=== PATIENT | female | born 1950 | race Caucasian/White ===

== ENCOUNTER → 2016-11-23 | Outpatient (CLI) | payer MEDICARE ==
[~2016-11-23] MED LIST: ATIVAN-DPS0.5 MG PO; COLACE-DPS100 MG PO; COMPAZINE DPS5 MG PO; DULERA 100/58.8 GM IH; DUONEB DPS3 ML IH; EFFEXOR XR75 MG PO; ELIQUIS2.5 MG PO; LIDODERM PATC1 PATCH TP; MAALOX DPS30 ML PO; MIRALAX PACKET17 GM PO; MS CONTIN DPS15 MG PO; MS CONTIN DPS30 MG PO; NORCO 5-325 TA1 EACH PO; NORVASC5 MG PO; OXY IR DPS5 MG PO; TYLENOL DPS325 MG PO; ZOFRAN4 MG PO
== END | disposition home or self-care (01) ==
LOC: RAD.S 08:30
DX: C34.12 Malignant neoplasm of upper lobe, left bronchus or lung (principal); C79.51 Secondary malignant neoplasm of bone; I26.99 Other pulmonary embolism without acute cor pulmonale; I10 Essential (primary) hypertension; R91.8 Other nonspecific abnormal finding of lung field; R59.1 Generalized enlarged lymph nodes

== ENCOUNTER → 2016-12-28 | Outpatient (CLI) | payer MEDICARE | END | disposition home or self-care (01) | LOC: RAD.S 08:56 | DX: R06.02 Shortness of breath (principal); R00.0 Tachycardia, unspecified; C34.12 Malignant neoplasm of upper lobe, left bronchus or lung; C79.51 Secondary malignant neoplasm of bone; I26.99 Other pulmonary embolism without acute cor pulmonale; R91.8 Other nonspecific abnormal finding of lung field; I10 Essential (primary) hypertension ==

== ENCOUNTER → 2017-01-08 | Outpatient (CLI) | payer MEDICARE ==
--- NOTE | ~2017-01-08 | ECH ---
Transthoracic Echocardiography Report (TTE) Demographics Patient Name JHONATAN DIAZ Date of Study 01/08/2017 Patient Number [id number] Visit Number [id number] Date of 1950 Room Number Accession Number [id number] Gender Female Age 66 year(s) Referring Soto Rodriges Economic Research Assistant Olimpia Murray [facility] Physician Physician Interpreting Jeevan De Jesus MD Fire Official Physician Supervising Ordering Physician Saw Oliva MD/DIPTI LOPEZN Nurse Stress Glove Pairer Conclusions Summary Technically fair exam. The estimated left ventricular ejection fraction is 60-65%. Mild concentric left ventricular hypertrophy. Diastolic assessment reveals Grade I diastolic dysfunction. Normal right ventricle structure and function. There is mild aortic regurgitation by color Doppler. Trivial tricuspid regurgitation by color Doppler, insufficient jet to estimate pulmonary pressures. Procedure Type of Study TTE procedure:Echo Complete SF. Procedure Date Date: 01/08/2017 Start: 09:08 AM Technical Quality: Fair due to lung interference. Indications:Shortness of breath, Tachycardia and Hypertension. Appropriate Use Criteria: 9 Height: 64 inches Weight: 190 pounds BSA: 1.91 m Rhythm: Sinus tachycardia HR: 110 bpm BP: 143/76 mmHg M-Mode/2D Measurements LV Diastolic Dimension: 3.71 cm LV Systolic Dimension: 2.94 cm LV Septum Diastolic: 1.31 cm LV PW Diastolic: 1.29 cm AO Root Dimension: 2.56 cm Cardiac Output: 4.96 l/min LA Dimension: 3.74 cm Cardiac Index: 2.6 l/min*m RV Diastolic Dimension: 3.06 cm LA volume index: 23 ml/m LVOT: 1.87 cm LVOT VTI: 16.41 cm RV Base: 3.57 cm LV Stroke volume: 45.05 ml RV Mid: 2.22 cm LV Stroke volume index: 23.59 ml/m RV Length: 5.27 cm Doppler Measurements AV Peak Velocity: 1.3 m/s MV Peak E-Wave: 0.56 m/s AV Peak Gradient: 6.76 mmHg MV Peak A-Wave: 0.98 m/s AV Mean Gradient: 3.72 mmHg MV E/A Ratio: 0.57 LVOT Peak Velocity: 1.04 m/s MV P1/2t: 55.7 msec AV Area (Continuity):2.2 cm AV P1/2t: 420.2 msec MV Deceleration Time: 182.3 msec MV Area (PHT): 3.95 cm PV Peak Velocity: 1.25 m/s PV Peak Gradient: 6.22 mmHg RA Area: 12.91 cm Findings Left Ventricle The left ventricle is normal in size . Mild concentric left ventricular hypertrophy. Diastolic assessment reveals Grade I diastolic dysfunction. Right Ventricle Normal right ventricle structure and function. Left Atrium Normal left atrial size. Right Atrium Normal right atrial size. Mitral Valve Normal mitral valve structure and function. Aortic Valve Normal aortic valve structure and function. There is mild aortic regurgitation by color Doppler. Tricuspid Valve Normal tricuspid valve structure and function. Trivial tricuspid regurgitation by color Doppler, insufficient jet to estimate pulmonary pressures. Pulmonic Valve Normal pulmonic valve structure and function. Pericardial Effusion No evidence of pericardial effusion. Miscellaneous Visualized portions of the aortic root and ascending aorta appear normal in size. Pleural Effusion No evidence of pleural effusion. Contractility Score LV regional wall motion:(0-Non visualized 1-Normal 2-Hypokinesis 3-Akinesis 4-Dyskinesis 5-Aneurysm) Signature
== END | disposition home or self-care (01) ==
LOC: CARD 08:34
DX: R06.02 Shortness of breath (principal); R00.0 Tachycardia, unspecified; I51.7 Cardiomegaly; I35.1 Nonrheumatic aortic (valve) insufficiency; C34.12 Malignant neoplasm of upper lobe, left bronchus or lung; C79.51 Secondary malignant neoplasm of bone; I26.99 Other pulmonary embolism without acute cor pulmonale; I10 Essential (primary) hypertension